=== PATIENT | female | born 1935 | race Caucasian/White ===

== ENCOUNTER → 2022-01-06 | Outpatient (CLI) | payer MEDICARE | LOC: RAD 08:00 | DX: K80.80 Other cholelithiasis without obstruction (principal); R17 Unspecified jaundice ==

== ENCOUNTER 2022-01-25 13:18 | Emergency (ER) | payer MEDICARE ==
[2022-01-25 13:42] LABS: BASO # 0.05 K/mm3 (0.02-0.10); EOS # 0.09 K/mm3 (0.04-0.40); EOS % 1.5 % (1.0-5.0); HEMATOCRIT 45.4 % (37.0-47.0); HEMOGLOBIN 14.6 g/dL (12.5-16.0); LYMPH# 1.57 K/mm3 (1.50-4.00); MEAN CELL VOLUME 87 fl (78-100); MEAN CORPUSCULAR HEMOGLOBIN 28 pg (27-31); MEAN CORPUSCULAR HGB CONC 32 g/dL (33-37); MEAN PLATELET VOLUME 11.7 fl (7.4-10.4); MONO # 0.96 K/mm3 (0.20-0.80); NEU # 3.39 K/mm3 (1.40-6.50); PLATELET COUNT 192 K/mm3 (130-400); RED BLOOD COUNT 5.23 M/mm3 (4.10-5.30); RED CELL DISTRIBUTION WIDTH 24.6 % (11.5-14.5); WHITE BLOOD COUNT 6.1 K/mm3 (4.8-10.8)
[2022-01-25 13:51] LABS: ALBUMIN 3.1 g/dL (3.4-4.8); POTASSIUM 5.6 mmol/L (3.5-5.1)
[2022-01-25 13:53] LABS: CALCIUM 10.1 mg/dL (8.3-10.5)
[2022-01-25 13:56] LABS: TOTAL BILIRUBIN 4.5 mg/dL (0.2-1.2)
[2022-01-25] MEDS ORDERED: METOPROLOL SUC200 M1 PO (14:03)
[2022-01-25 14:06] LABS: TROPONIN-I 0.052 ng/mL (<0.030)
[2022-01-25 14:36] LABS: URINE APPEARANCE CLEAR; URINE BILIRUBIN NEGATIVE (NEGATIVE); URINE BLOOD NEGATIVE (NEGATIVE); URINE COLOR YELLOW; URINE GLUCOSE NEGATIVE (NEGATIVE); URINE KETONE NEGATIVE (NEGATIVE); URINE LEUKOCYTE ESTERASE NEGATIVE (NEGATIVE); URINE NITRATE NEGATIVE (NEGATIVE); URINE PROTEIN(semi-quant) TRACE (NEGATIVE); URINE UROBILINOGEN NORMAL (NORMAL)
[2022-01-25 14:37] LABS: URINE MUCUS PRESENT (NOT PRESENT)
[2022-01-25] MEDS ORDERED: JARDIANCE10 MG PO (14:59)
[2022-01-25] MEDS ORDERED: ZAROXOLYN PO (14:59)
[2022-01-25] MEDS ORDERED: TORSEMIDE20 M1 PO (14:59)
[2022-01-25] MEDS ORDERED: CEFDINIR300 MG PO (14:59)
[2022-01-25] MEDS ORDERED: POTASSIUM CHLO20 ME4 PO (14:59)
[2022-01-25] MEDS ORDERED: AMIODARONE200 MG PO (14:59)
[2022-01-25] MEDS ORDERED: LEVOTHYROXINE0.05 MG PO (15:00)
[2022-01-25] MEDS ORDERED: LISINOPRIL40 MG PO (15:00)
[2022-01-25] MEDS ORDERED: ELIQUIS5 MG PO (15:00)
[2022-01-25] MEDS ORDERED: SIMVASTATIN20 M1 PO (15:00)
[2022-01-25] MEDS ORDERED: FUROSEMIDE40 MG (15:00)
[2022-01-25 16:35] LABS: PROTHROMBIN TIME 27.7 SECONDS (9.0-12.0)
[2022-01-25 16:52] VITALS: BP 139/73
== END 2022-01-25 15:56 | disposition other institution (70) ==
LOC: ED 13:18
PROVIDERS: Physician Assistant
DX: I48.0 Paroxysmal atrial fibrillation (principal); N28.9 Disorder of kidney and ureter, unspecified; E80.7 Disorder of bilirubin metabolism, unspecified; I50.9 Heart failure, unspecified; R77.8 Other specified abnormalities of plasma proteins; R74.01 Elevation of levels of liver transaminase levels; Z79.01 Long term (current) use of anticoagulants
CPT/HCPCS: J1940; Q9967

== ENCOUNTER 2022-01-26 13:34 | Inpatient (IN) | payer MEDICARE ==
[~2022-01-26] VITALS: Ht 157.5 cm; Wt 71.9 kg
[~2022-01-26 13:34] MED LIST: AMIODARONE200 MG PO; CEFDINIR300 MG PO; ELIQUIS5 MG PO; FUROSEMIDE40 MG; JARDIANCE10 MG PO; LEVOTHYROXINE0.05 MG PO; LISINOPRIL40 MG PO; METOPROLOL SUC200 M1 PO; POTASSIUM CHLO20 ME4 PO; SIMVASTATIN20 M1 PO; TORSEMIDE20 M1 PO; ZAROXOLYN PO
[2022-01-26 15:50] VITALS: BP 103/52
[2022-01-26 15:58] VITALS: BP 103/52
[2022-01-27 00:30] LABS: URINE APPEARANCE CLOUDY; URINE COLOR BLOODY
[2022-01-27 00:31] LABS: URINE BILIRUBIN NEGATIVE (NEGATIVE); URINE BLOOD 250 ery/uL (NEGATIVE); URINE GLUCOSE NEGATIVE (NEGATIVE); URINE KETONE NEGATIVE (NEGATIVE); URINE LEUKOCYTE ESTERASE 1+ (NEGATIVE); URINE NITRATE NEGATIVE (NEGATIVE); URINE PROTEIN(semi-quant) 3+ (NEGATIVE); URINE UROBILINOGEN NORMAL (NORMAL)
[2022-01-27 05:26] VITALS: BP 118/55
[2022-01-27 07:31] LABS: BASO # 0.05 K/mm3 (0.02-0.10); EOS # 0.14 K/mm3 (0.04-0.40); EOS % 2.5 % (1.0-5.0); HEMATOCRIT 40.9 % (37.0-47.0); HEMOGLOBIN 13.2 g/dL (12.5-16.0); LYMPH# 1.35 K/mm3 (1.50-4.00); MEAN CELL VOLUME 86 fl (78-100); MEAN CORPUSCULAR HEMOGLOBIN 28 pg (27-31); MEAN CORPUSCULAR HGB CONC 32 g/dL (33-37); MONO # 0.79 K/mm3 (0.20-0.80); PLATELET COUNT 193 K/mm3 (130-400); RED BLOOD COUNT 4.74 M/mm3 (4.10-5.30); RED CELL DISTRIBUTION WIDTH 24.1 % (11.5-14.5); WHITE BLOOD COUNT 5.6 K/mm3 (4.8-10.8)
[2022-01-27 07:53] LABS: ALBUMIN 2.4 g/dL (3.4-4.8); POTASSIUM 3.9 mmol/L (3.5-5.1)
[2022-01-27 07:54] LABS: CALCIUM 8.9 mg/dL (8.3-10.5)
[2022-01-27 07:55] LABS: TOTAL PROTEIN 5.5 g/dL (6.2-8.1)
[2022-01-27 07:57] LABS: TOTAL BILIRUBIN 2.9 mg/dL (0.2-1.2)
[2022-01-27 17:17] VITALS: BP 10/48; BP 100/48
[2022-01-28 05:16] VITALS: BP 91/54
[2022-01-28 16:11] VITALS: BP 109/69
[2022-01-29 05:59] VITALS: BP 98/58
[2022-01-29 16:43] VITALS: BP 112/66
[2022-01-30 05:06] VITALS: BP 107/68
[2022-01-30 17:00] VITALS: BP 106/65
[2022-01-31 05:42] VITALS: BP 120/69
[2022-01-31 17:58] VITALS: BP 99/61
[2022-02-01 05:08] VITALS: BP 106/65
[2022-02-01 10:44] LABS: BASO # 0.03 K/mm3 (0.02-0.10); EOS # 0.11 K/mm3 (0.04-0.40); EOS % 1.7 % (1.0-5.0); HEMATOCRIT 40.9 % (37.0-47.0); HEMOGLOBIN 13.2 g/dL (12.5-16.0); LYMPH# 1.68 K/mm3 (1.50-4.00); MEAN CELL VOLUME 86 fl (78-100); MEAN CORPUSCULAR HEMOGLOBIN 28 pg (27-31); MEAN CORPUSCULAR HGB CONC 32 g/dL (33-37); MEAN PLATELET VOLUME 10.1 fl (7.4-10.4); MONO # 1.17 K/mm3 (0.20-0.80); NEU # 3.35 K/mm3 (1.40-6.50); PLATELET COUNT 170 K/mm3 (130-400); RED BLOOD COUNT 4.77 M/mm3 (4.10-5.30); RED CELL DISTRIBUTION WIDTH 23.6 % (11.5-14.5); WHITE BLOOD COUNT 6.4 K/mm3 (4.8-10.8)
[2022-02-01 11:05] LABS: ALBUMIN 2.7 g/dL (3.4-4.8)
[2022-02-01 11:06] LABS: POTASSIUM 3.5 mmol/L (3.5-5.1)
[2022-02-01 11:07] LABS: CALCIUM 8.7 mg/dL (8.3-10.5)
[2022-02-01 11:10] LABS: TOTAL BILIRUBIN 2.1 mg/dL (0.2-1.2)
[2022-02-01 17:31] VITALS: BP 102/64; BP 103/62
[2022-02-02 05:42] VITALS: BP 107/65
[2022-02-02 18:22] VITALS: BP 93/59
[2022-02-03] VITALS (11 sets, daily range): BP systolic 51–115; BP diastolic 32–58
[2022-02-03 07:09] LABS: POTASSIUM 3.3 mmol/L (3.5-5.1)
[2022-02-03 07:10] LABS: CALCIUM 8.6 mg/dL (8.3-10.5)
[2022-02-03 16:03] LABS: POTASSIUM 5.5 mmol/L (3.5-5.1)
[2022-02-03 16:04] LABS: CALCIUM 8.5 mg/dL (8.3-10.5)
[2022-02-03 18:27] LABS: POTASSIUM 3.9 mmol/L (3.5-5.1)
[2022-02-03 18:28] LABS: CALCIUM 8.5 mg/dL (8.3-10.5)
[2022-02-04] VITALS (10 sets, daily range): BP systolic 67–115; BP diastolic 40–55
[2022-02-04 10:30] LABS: BASO # 0.06 K/mm3 (0.02-0.10); EOS # 0.08 K/mm3 (0.04-0.40); EOS % 1.6 % (1.0-5.0); HEMATOCRIT 42.5 % (37.0-47.0); HEMOGLOBIN 13.7 g/dL (12.5-16.0); LYMPH# 1.08 K/mm3 (1.50-4.00); MEAN CELL VOLUME 87 fl (78-100); MEAN CORPUSCULAR HEMOGLOBIN 28 pg (27-31); MEAN CORPUSCULAR HGB CONC 32 g/dL (33-37); MEAN PLATELET VOLUME 10.8 fl (7.4-10.4); MONO # 0.76 K/mm3 (0.20-0.80); NEU # 2.85 K/mm3 (1.40-6.50); PLATELET COUNT 204 K/mm3 (130-400); RED BLOOD COUNT 4.89 M/mm3 (4.10-5.30); RED CELL DISTRIBUTION WIDTH 23.4 % (11.5-14.5); WHITE BLOOD COUNT 4.9 K/mm3 (4.8-10.8)
[2022-02-04 10:34] LABS: POTASSIUM 3.7 mmol/L (3.5-5.1)
[2022-02-04 10:35] LABS: CALCIUM 8.5 mg/dL (8.3-10.5)
[2022-02-04 11:42] LABS: TROPONIN-I 0.079 ng/mL (<0.030)
[2022-02-04 15:32] LABS: URINE APPEARANCE CLOUDY; URINE BILIRUBIN NEGATIVE (NEGATIVE); URINE BLOOD NEGATIVE (NEGATIVE); URINE COLOR YELLOW; URINE GLUCOSE NEGATIVE (NEGATIVE); URINE KETONE NEGATIVE (NEGATIVE); URINE NITRATE NEGATIVE (NEGATIVE); URINE PROTEIN(semi-quant) NEGATIVE (NEGATIVE); URINE UROBILINOGEN NORMAL (NORMAL)
[2022-02-04 15:33] LABS: URINE LEUKOCYTE ESTERASE TRACE (NEGATIVE)
[2022-02-05 06:03] VITALS: BP 120/68
[2022-02-05 17:59] VITALS: BP 107/56
[2022-02-06 06:04] VITALS: BP 125/59
[2022-02-06 07:20] LABS: BASO # 0.07 K/mm3 (0.02-0.10); EOS # 0.18 K/mm3 (0.04-0.40); EOS % 3.7 % (1.0-5.0); HEMATOCRIT 41.3 % (37.0-47.0); HEMOGLOBIN 13.6 g/dL (12.5-16.0); LYMPH# 1.58 K/mm3 (1.50-4.00); MEAN CELL VOLUME 86 fl (78-100); MEAN CORPUSCULAR HEMOGLOBIN 28 pg (27-31); MEAN CORPUSCULAR HGB CONC 33 g/dL (33-37); MEAN PLATELET VOLUME 10.6 fl (7.4-10.4); NEU # 2.18 K/mm3 (1.40-6.50); PLATELET COUNT 202 K/mm3 (130-400); POTASSIUM 3.7 mmol/L (3.5-5.1); RED CELL DISTRIBUTION WIDTH 23.5 % (11.5-14.5); WHITE BLOOD COUNT 4.8 K/mm3 (4.8-10.8)
[2022-02-06 07:22] LABS: CALCIUM 8.6 mg/dL (8.3-10.5)
[2022-02-06 07:42] LABS: ALBUMIN 2.8 g/dL (3.4-4.8)
[2022-02-06 07:45] LABS: TOTAL PROTEIN 6.1 g/dL (6.2-8.1)
[2022-02-06 07:47] LABS: TOTAL BILIRUBIN 2.1 mg/dL (0.2-1.2)
[2022-02-06 08:45] VITALS: BP 117/59
[2022-02-06 09:45] LABS: TROPONIN-I 0.08 ng/mL (<0.030)
[2022-02-06 17:06] VITALS: BP 112/60
[2022-02-07 06:01] VITALS: BP 118/61
[2022-02-07 09:28] VITALS: BP 115/54
[2022-02-07 17:21] VITALS: BP 123/58
[2022-02-08 06:34] VITALS: BP 118/64
[2022-02-08 07:14] LABS: ALBUMIN 2.6 g/dL (3.4-4.8); POTASSIUM 3.5 mmol/L (3.5-5.1)
[2022-02-08 07:16] LABS: BASO # 0.07 K/mm3 (0.02-0.10); CALCIUM 8.3 mg/dL (8.3-10.5); EOS % 4.6 % (1.0-5.0); HEMATOCRIT 39.2 % (37.0-47.0); HEMOGLOBIN 12.7 g/dL (12.5-16.0); LYMPH# 1.65 K/mm3 (1.50-4.00); MEAN CELL VOLUME 87 fl (78-100); MEAN CORPUSCULAR HEMOGLOBIN 28 pg (27-31); MEAN CORPUSCULAR HGB CONC 32 g/dL (33-37); MONO # 0.77 K/mm3 (0.20-0.80); NEU # 1.66 K/mm3 (1.40-6.50); PLATELET COUNT 188 K/mm3 (130-400); RED BLOOD COUNT 4.52 M/mm3 (4.10-5.30); RED CELL DISTRIBUTION WIDTH 23.5 % (11.5-14.5); WHITE BLOOD COUNT 4.4 K/mm3 (4.8-10.8)
[2022-02-08 07:17] LABS: TOTAL PROTEIN 5.6 g/dL (6.2-8.1)
[2022-02-08 07:19] LABS: TOTAL BILIRUBIN 1.7 mg/dL (0.2-1.2)
[2022-02-08 17:12] VITALS: BP 113/52
[2022-02-09 06:00] VITALS: BP 109/57
[2022-02-09 07:56] VITALS: BP 103/69
[2022-02-09 10:17] VITALS: BP 128/63
[2022-02-09] MEDS ORDERED: SOAANZ20 MG PO (13:55)
== END 2022-02-09 14:15 | disposition home health service (06) | DRG 948 ==
LOC: MED/SURG 13:34
PROVIDERS: Family Medicine; Nurse Practitioner; Physician Assistant; ADMIT Nurse Practitioner
DX: R53.81 Other malaise (principal); L03.116 Cellulitis of left lower limb; L03.115 Cellulitis of right lower limb; I48.0 Paroxysmal atrial fibrillation; E03.9 Hypothyroidism, unspecified; I11.0 Hypertensive heart disease with heart failure; J44.9 Chronic obstructive pulmonary disease, unspecified; I08.3 Combined rheumatic disorders of mitral, aortic and tricuspid valves; N28.9 Disorder of kidney and ureter, unspecified; R00.1 Bradycardia, unspecified; F32.A Depression, unspecified; E78.5 Hyperlipidemia, unspecified; Z79.01 Long term (current) use of anticoagulants; Z95.818 Presence of other cardiac implants and grafts; Z96.653 Presence of artificial knee joint, bilateral; Z85.3 Personal history of malignant neoplasm of breast; Z88.1 Allergy status to other antibiotic agents
CPT/HCPCS: J0696; J1940; J7030